=== PATIENT | male | born 1935 | race Two or more races ===

== ENCOUNTER 2017-07-08 09:01 | Emergency (ER) | payer MEDICARE ==
[2017-07-08] MEDS ORDERED: SODIUM CHLORIDE 0.9% 500 ML IV STA (09:38)
--- NOTE | 2017-07-08 09:41 | ED ---
Abdominal Pain HPI - General Chief Complaint: Abdominal Pain Stated Complaint: abd pain Time Seen by Provider: 07/08/17 09:18 Source: patient, family, RN notes reviewed Mode of arrival: ambulatory Limitations: physical limitation - History of Present Illness Initial Comments: 82-year-old male presents emergency Department with chief complaint of abdominal pain. Patient states she's been having on and off abdominal pain for several months. Patient states pain is not getting better it seems to worsen last few days. Patient was seen in [place] and told that he needed to have his gallbladder taken out but he had pacemaker surgery instead. Patient states that he sometimes has right upper quadrant. There were also left-sided abdominal pain. Patient reports no nausea vomiting diarrhea constipation. Patient had ultrasound and CT of 4-6 months ago which showed gallstones. 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 Patient states that this was surgically removed 12 years ago at [facility]. Patient has an appointment with Dr. Chery - Related Data Home Medications Medication Instructions Recorded Confirmed Insulin Glargine [Lantus] 28 unit SQ DAILY 07/08/17 07/08/17 Multivitamin [Men's Multi-Vitamin] 1 tab PO DAILY 07/08/17 07/08/17 Rivaroxaban [Xarelto] 20 mg PO DAILY 07/08/17 07/08/17 Previous Rx's Medication Instructions Recorded Hydrocodone/Acetaminophen [[place] 1 tab PO Q6HR PRN #12 tab 07/08/17 5-325] Allergies Allergy/AdvReac Type Severity Reaction Status Date / Time Penicillins Allergy Rash/Hives Verified 07/08/17 09:23 Review of Systems ROS Statement: Those systems with pertinent positive or pertinent negative responses have been documented in the HPI. ROS Other: All systems not noted in ROS Statement are negative. 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 Absent: scleral icterus, conjunctival injection, periorbital swelling ENT exam: Present: normal exam, normal oropharynx, mucous membranes moist Neck exam: Present: normal inspection, full ROM. Absent: tenderness, meningismus, lymphadenopathy Respiratory exam: Present: normal lung sounds bilaterally. Absent: respiratory distress, wheezes, rales, rhonchi, stridor Cardiovascular Exam: Present: regular rate, normal rhythm, normal heart sounds. Absent: systolic murmur, diastolic murmur, rubs, gallop, clicks GI/Abdominal exam: Present: soft, tenderness (Mild upper abdominal tenderness), normal bowel sounds. Absent: distended, guarding, rebound, rigid Back exam: Absent: CVA tenderness (R), CVA tenderness (L) Skin exam: Present: warm, dry, intact, normal color. Absent: rash Course Vital Signs 07/08/17 09:11 Temperature 97.1 F L Pulse Rate 74 Respiratory 18 Rate Blood Pressure 147/75 O2 Sat by Pulse 97 Oximetry Medical Decision Making - Medical Decision Making 82-year-old male presents for abdominal pain. Patient has known cholelithiasis. Patient has appointment with Dr. Chery coming up. The patient had laboratory, all child shows no acute changes. Patient we discharged with pain medication to only take as needed. Patient will follow-up sooner return for any worsening symptoms. - Lab Data Result diagrams: 07/08/17 10:30 07/08/17 10:30 Lab Results 07/08/17 07/08/17 07/08/17 Range/Units 10:30 10:30 10:30 WBC 4.9 (3.8-10.6) k/uL RBC 4.36 (4.30-5.90) m/uL Hgb 13.6 (13.0-17.5) gm/dL Hct 40.7 (39.0-53.0) % MCV 93.5 (80.0-100.0) fL MCH 31.2 (25.0-35.0) pg MCHC 33.4 (31.0-37.0) g/dL RDW 13.7 (11.5-15.5) % Plt Count 195 (150-450) k/uL Neutrophils % 55 % Lymphocytes % 30 % Monocytes % 9 % Eosinophils % 4 % Basophils % 1 % Neutrophils # 2.7 (1.3-7.7) k/uL Lymphocytes # 1.5 (1.0-4.8) k/uL Monocytes # 0.4 (0-1.0) k/uL Eosinophils # 0.2 (0-0.7) k/uL Basophils # 0.0 (0-0.2) k/uL PT 12.6 H (9.0-12.0) sec INR 1.3 H (<1.2) APTT 29.7 (22.0-30.0) sec Sodium 143 (137-145) mmol/L Potassium 4.5 (3.5-5.1) mmol/L Chloride 107 (98-107) mmol/L Carbon Dioxide 24 (22-30) mmol/L Anion Gap 12 mmol/L BUN 30 H (9-20) mg/dL Creatinine 1.01 (0.66-1.25) mg/dL Est GFR (CKD-EPI)AfAm 80 (>60 ml/min/1.73 sqM) Est GFR (CKD-EPI)NonAf 70 (>60 ml/min/1.73 sqM) Glucose 205 H (74-99) mg/dL Calcium 9.1 (8.4-10.2) mg/dL Total Bilirubin 0.6 (0.2-1.3) mg/dL AST 22 (17-59) U/L ALT 28 (21-72) U/L Alkaline Phosphatase 53 (38-126) U/L Total Protein 6.3 (6.3-8.2) g/dL Albumin 3.9 (3.5-5.0) g/dL Amylase 42 (30-110) U/L Lipase 32 (23-300) U/L Urine Color Urine Appearance (Clear) Urine pH (5.0-8.0) Ur Specific Red Level (1.001-1.035) Urine Protein (Negative) Urine Glucose (UA) (Negative) Urine Ketones (Negative) Urine Blood (Negative) Urine Nitrite (Negative) Urine Bilirubin (Negative) Urine Urobilinogen (<2.0) mg/dL Ur Leukocyte Esterase (Negative) 07/08/17 Range/Units 10:30 WBC (3.8-10.6) k/uL RBC (4.30-5.90) m/uL Hgb (13.0-17.5) gm/dL Hct (39.0-53.0) % MCV (80.0-100.0) fL MCH (25.0-35.0) pg MCHC (31.0-37.0) g/dL RDW (11.5-15.5) % Plt Count (150-450) k/uL Neutrophils % % Lymphocytes % % Monocytes % % Eosinophils % % Basophils % % Neutrophils # (1.3-7.7) k/uL Lymphocytes # (1.0-4.8) k/uL Monocytes # (0-1.0) k/uL Eosinophils # (0-0.7) k/uL Basophils # (0-0.2) k/uL PT (9.0-12.0) sec INR (<1.2) APTT (22.0-30.0) sec Sodium (137-145) mmol/L Potassium (3.5-5.1) mmol/L Chloride (98-107) mmol/L Carbon Dioxide (22-30) mmol/L Anion Gap mmol/L BUN (9-20) mg/dL Creatinine (0.66-1.25) mg/dL Est GFR (CKD-EPI)AfAm (>60 ml/min/1.73 sqM) Est GFR (CKD-EPI)NonAf (>60 ml/min/1.73 sqM) Glucose (74-99) mg/dL Calcium (8.4-10.2) mg/dL Total Bilirubin (0.2-1.3) mg/dL AST (17-59) U/L ALT (21-72) U/L Alkaline Phosphatase (38-126) U/L Total Protein (6.3-8.2) g/dL Albumin (3.5-5.0) g/dL Amylase (30-110) U/L Lipase (23-300) U/L Urine Color Yellow Urine Appearance Clear (Clear) Urine pH 5.0 (5.0-8.0) Ur Specific Red Level 1.021 (1.001-1.035) Urine Protein Trace H (Negative) Urine Glucose (UA) 4+ H (Negative) Urine Ketones Negative (Negative) Urine Blood Negative (Negative) Urine Nitrite Negative (Negative) Urine Bilirubin Negative (Negative) Urine Urobilinogen <2.0 (<2.0) mg/dL Ur Leukocyte Esterase Negative (Negative) Disposition Clinical Impression: Abdominal pain, Cholelithiasis Disposition: HOME SELF-CARE Condition: Stable Instructions: Gallstones (ED) Additional Instructions: Please return to the Emergency Department if symptoms worsen or any other concerns. Prescriptions: Hydrocodone/Acetaminophen [[place] 5-325] 1 tab PO Q6HR PRN #12 tab PRN Reason: Pain Is patient prescribed a controlled substance at d/c from ED?: Yes When asked, does pt state using other controlled substances?: No If prescribed controlled substance>3 days was MAPS reviewed?: Prescribed <3 Days If opioid is for acute pain is fill amount 7 days or less?: Yes Referrals: None,Stated [Primary Care Provider] - 1-2 days Haris Chery MD [Medical Doctor] - 1-2 days Time of Disposition: 12:13
[2017-07-08 10:40] LABS: Appearance,Urine Clear (Clear); Bilirubin,Urine Negative (Negative); Blood,Urine Negative (Negative); Color,Urine Yellow; Glucose,Urine (UA) 4+ (Negative); Ketones,Urine Negative (Negative); Leukocyte Esterase,Urine Negative (Negative); Nitrite,Urine Negative (Negative); Protein,Urine Trace (Negative); Specific Gravity,Urine 1.021 (1.001-1.035); Urobilinogen,Urine <2.0 mg/dL (<2.0)
[2017-07-08 10:46] LABS: Basophils % (A) 1 %; Eosinophils # (A) 0.2 k/uL (0-0.7); Eosinophils % (A) 4 %; HCT 40.7 % (39.0-53.0); HGB 13.6 gm/dL (13.0-17.5); Lymphocytes # (A) 1.5 k/uL (1.0-4.8); Lymphocytes % (A) 30 %; MCH 31.2 pg (25.0-35.0); MCHC 33.4 g/dL (31.0-37.0); MCV 93.5 fL (80.0-100.0); Mean Platelet Volume 7.1; Monocytes # (A) 0.4 k/uL (0-1.0); Monocytes % (A) 9 %; Neutrophils # (A) 2.7 k/uL (1.3-7.7); Neutrophils % (A) 55 %; Platelet Count 195 k/uL (150-450); RBC 4.36 m/uL (4.30-5.90); RDW 13.7 % (11.5-15.5); WBC 4.9 k/uL (3.8-10.6)
[2017-07-08 10:58] LABS: INR 1.3 (<1.2); Partial Thromboplastin Time 29.7 sec (22.0-30.0); Prothrombin Time 12.6 sec (9.0-12.0)
[2017-07-08 11:38] LABS: Albumin 3.9 g/dL (3.5-5.0); Calcium 9.1 mg/dL (8.4-10.2); Potassium 4.5 mmol/L (3.5-5.1); Total Bilirubin 0.6 mg/dL (0.2-1.3); Total Protein 6.3 g/dL (6.3-8.2)
--- NOTE | 2017-07-08 11:43 | US ---
EXAMINATION TYPE: US gallbladder DATE OF EXAM: 07/08/2017 COMPARISON: NONE CLINICAL HISTORY: Pain. Patient c/o abdominal pain x 2 days. EXAM MEASUREMENTS: Liver Length: 16.7 cm Gallbladder Wall: 0.2 cm CBD: 0.3 cm Right Kidney: 9.9 x 5.7 x 5.6 cm Pancreas: Obscured by bowel gas Liver: Partially Obscured by overlying bowel gas. No obvious masses. Gallbladder: Multiple echogenic, shadowing, mobile gallstones. Evidence for sonographic So's sign: no CBD: wnl Right Kidney: wnl IMPRESSION: 1. Cholelithiasis.
--- NOTE | 2017-07-08 11:52 | XR ---
EXAMINATION TYPE: XR KUB DATE OF EXAM: 07/08/2017 COMPARISON: NONE INDICATION: Abdominal pain TECHNIQUE: Single view abdomen upright view FINDINGS: No free air is under the diaphragm. No suspicious differential air-fluid levels are present. Mild non specific bowel gas is present. Psoas margins are normal. No organomegaly is present. Postsurgical changes within the right midabdomen. Electronic device overlies lower chest. IMPRESSION: 1. Nonspecific abdomen
[2017-07-08 12:47] VITALS: BP 118/68; PULSE 70; RESP 16; TEMP 98
== END 2017-07-08 12:46 | disposition home or self-care (01) ==
LOC: EC 09:01
DX: K80.20 Calculus of gallbladder without cholecystitis without obstruction (principal); E11.9 Type 2 diabetes mellitus without complications; Z90.49 Acquired absence of other specified parts of digestive tract; Z95.0 Presence of cardiac pacemaker; Z85.028 Personal history of other malignant neoplasm of stomach; Z79.01 Long term (current) use of anticoagulants; Z79.4 Long term (current) use of insulin; Z88.0 Allergy status to penicillin
CPT/HCPCS: 36415; 74018; 76705; 80053; 81003; 82150; 83690; 85025; 85610; 85730; 99284

== ENCOUNTER 2017-07-23 12:45 | Day surgery (SDC) | payer MEDICARE ==
[2017-07-16 09:34] VITALS: BMI 29.4
[~2017-07-23 12:45] MED LIST: HEPARIN SODIUM,PORCINE 5,000 UNIT/ML 1 ML VIAL SQ ONE; HYDROmorphone 0.5 MG/0.5 ML SYRINGE IVP PRN; LACTATED RINGERS 1,000 ML IV SCH; ONDANSETRON 4 MG/2 ML VIAL IVP ONE; ceFAZolin IN SWFI 2 GM/20 ML SYRINGE IVP ONE
[2017-07-23 13:12] LABS: Glucose,Whole Blood 127 mg/dL (75-99)
[2017-07-23] MEDS ORDERED: LIDOCAINE 1% 20 ML VIAL (10MG/ML) FOR IV START INTRADERMA ONE (13:12)
[2017-07-23] MEDS ORDERED: LIDOCAINE 1% INJ 10MG/ML (20 ML MDV) ONE (15:01)
[2017-07-23] MEDS ORDERED: ACETAMINOPHEN IV (For NPO) 1,000 MG/100 ML VIAL ONE (15:01)
[2017-07-23] MEDS ORDERED: GLYCOPYRROLATE 0.2 MG/ML 2 ML VIAL ONE (15:01)
[2017-07-23] MEDS ORDERED: HYDROmorphone (PF) 1 MG/ML ONE (15:01)
[2017-07-23] MEDS ORDERED: fentaNYL (PF) 50 MCG/ML 2 ML AMP ONE (15:01)
[2017-07-23] MEDS ORDERED: PROPOFOL 10 MG/ML 20 ML VIAL IV ONE (15:01)
[2017-07-23] MEDS ORDERED: ePHEDrine SULFATE/0.9% NACL/PF 50 MG/5 ML SYRINGE IV ONE (15:01)
[2017-07-23] MEDS ORDERED: ROCURONIUM BROMIDE 10 MG/ML 10 ML VIAL IV ONE (15:01)
[2017-07-23] MEDS ORDERED: SUCCINYLCHOLINE CHLORIDE 100 MG/5 ML SYR IV ONE (15:01)
[2017-07-23] MEDS ORDERED: NEOSTIGMINE 1 MG/ML 10 ML VIAL ONE (15:01)
[2017-07-23] MEDS ORDERED: BUPIVACAINE (PF) 0.5% 30 ML VIAL SQ ONE ×3 (15:28)
[2017-07-23] MEDS ORDERED: LACTATED RINGERS 1,000 ML IV ONE (15:30)
--- NOTE | 2017-07-23 16:07 | P.OP ---
Date of Procedure: 07/23/17 Procedure(s) Performed: PREOPERATIVE DIAGNOSIS: Chronic cholecystitis POSTOPERATIVE DIAGNOSIS: Same PROCEDURE: Laparoscopic cholecystectomy SURGEON: Vik EBL: Minimal see anesthesia record ANESTHESIA: Gen. COMPLICATIONS: None OPERATIVE PROCEDURE: The patient was brought and placed on the operating room table in the supine position. The patient was placed under general anesthesia at that time. The abdomen was prepped and draped in the usual sterile fashion. A small vertical infraumbilical incision was made. The fascia was grasped with the Garry forceps. The fascia was retracted anteriorly. The Veress needle was advanced into the peritoneal cavity. The saline drop test was not normal. The patient had a right lower quadrant incision. I decided to enter the peritoneal cavity in the left upper quadrant using an optical 5 mm trocar. This went without difficulty. When inspecting the mid abdomen and right lower quadrant there was no visible adhesions seen. A 5 mm optical trocar was advanced into the peritoneal cavity at the umbilicus. 2 additional 5 mm trochars were placed in the right upper quadrant under direct visualization. A 12 mm trocar was advanced into the epigastric incision site. The gallbladder was retracted superiorly and laterally. The peritoneum overlying the infundibulum was bluntly dissected. The patient's cystic duct was visualized. The junction between the cystic duct common and hepatic duct was identified. The cystic duct was then divided after placement of 3 12 mm clips on the patient 's side and one on the specimen side. The cystic artery was identified and clipped as well. A small vessel was seen along the gallbladder fossa and clipped as well. The gallbladder was then removed from the liver bed using electrocautery. The gallbladder was then removed from the epigastric trocar site with an Endo Catch bag. The gallbladder fossa was irrigated with saline. There was no evidence of any bleeding or biliary drainage seen. The trochars were then removed. The fascia at the 10 millimeter site was closed using a JonatanDonavan 0 Vicryl stitch. The skin at all 5 sites was closed using a 4- 0 Monocryl stitch. At the end of this procedure the sponge and needle counts were correct. DISPOSITION: Stable to the recovery room
[2017-07-23 16:27] VITALS: TEMP 97.4
[2017-07-23 16:43] LABS: Glucose,Whole Blood 111 mg/dL (75-99)
[2017-07-23 17:37] VITALS: PULSE 70
[2017-07-23 18:16] VITALS: BP 124/73; RESP 18
== END 2017-07-23 18:31 | disposition home or self-care (01) ==
LOC: OR 12:45
PROVIDERS: ATTEND Surgery
DX: K81.1 Chronic cholecystitis (principal); I48.91 Unspecified atrial fibrillation; E11.9 Type 2 diabetes mellitus without complications; Z88.0 Allergy status to penicillin; Z88.5 Allergy status to narcotic agent; Z88.8 Allergy status to other drugs, medicaments and biological substances; Z95.0 Presence of cardiac pacemaker; Z79.02 Long term (current) use of antithrombotics/antiplatelets; Z79.891 Long term (current) use of opiate analgesic; Z79.899 Other long term (current) drug therapy
CPT/HCPCS: 47562; J1644; J2710; J2405; J2001; J3010; J1170; J0131; J0330; J2704; J0690; 88304